=== PATIENT | female | born 1945 | race Caucasian/White ===

== ENCOUNTER 2021-02-20 08:26 | Outpatient (CLI) | payer MEDICARE, SELFPAY ==
--- NOTE | ~2021-02-20 | NM_ITS ---
EXAMINATION: NM alberto stress w perfusion DATE: 02/20/2021 13:21 CDT INDICATION: Chest pain and shortness of breath TECHNIQUE: Rest images were obtained following intravenous administration of mCi Tc99m tetrofosmin (Myoview). The patient was infused intravenously with Lexiscan (regadenoson). Then, 26.7 mCi Tc99m tetrofosmin (Myoview) was administered intravenously, and stress images were obt ained. Data was reconstructed into short axis and horizontal and vertical long axis SPECT images. Gat ed SPECT images were also obtained. COMPARISON: None. FINDINGS: There is no definite reversible or fixed perfusion abnormality to suggest ischemia or infar ction. There is no segmental wall motion abnormality. Left ventricular ejection fraction measures 8 0%. IMPRESSION: 1. No definite ischemia or infarct. 2. Normal left ventricular ejection fraction measuring 80%. Reviewed, dictated and finalized at location B.
--- NOTE | 2021-02-20 08:57 | ECHO_ITS ---
Patient Info Name: Faiza Bower Age: 75 years : 1945 Gender: Female Ht: 65 in Wt: 266 lbs BSA: 2.42 m2 HR: 96 bpm BP: 161 / 75 mmHg Technical Quality: Good Exam Date: 02/20/2021 9:17 AM Exam Location: [facility] Pulmonary Patient Status: Outpatient Admit Date: 02/20/2021 Staff Ordering Physician: John Acevedo DO Title One Reading Teacher: Ansley Beltran RDCS Attending Provider: John Acevedo DO Referring Physician: Curtis HAYNES; Exam Type: CA echo doppler color flow Study Info Indications - sob chest pain Complete two-dimensional, color flow and Doppler transthoracic echocardiogram is performed with contrast to opacify the left ventricle and to improve the deliniation of the left ventricle endocardial borders. Contrast/Agitated Saline Contrast/Ag. Saline: Definity Amount: --- ml Administered By: Sheela Jung RN New IV Access: Outer Forearm Site Condition: Site dressing applied Summary 1. Left ventricular chamber dimension is normal. 2. Definity contrast administered improved wall motion interpretation. 3. Left ventricular systolic function is normal, estimated at 65-70%. 4. There is mildly increased left ventricular wall thickness. 5. The left ventricular diastolic function is grade I diastolic dysfunction. 6. E/e' 14 is mildly elevated. 7. Left atrial chamber dimension is mildly enlarged. 8. The mitral valve has moderately calcified annulus. 9. No pulmonary hypertension, estimated pulmonary arterial systolic pressure is 38 mmHg. Left Ventricle E/e' 14 is mildly elevated. Definity contrast administered improved wall motion interpretation. Left ventricular chamber dimension is normal. Left ventricular systolic function is normal, estimated at 65-70%. There is mildly increased left ventricular wall thickness. The left ventricular diastolic function is grade I diastolic dysfunction. Right Ventricle Right ventricular chamber dimension is normal. Right ventricular systolic function is normal. Left Atria Left atrial chamber dimension is mildly enlarged. Right Atria Right atrial chamber dimension is normal. Aortic Valve The aortic valve is trileaflet. There is no aortic valve stenosis. There is no aortic valve regurgitation. Pulmonic Valve There is no pulmonic regurgitation. Mitral Valve The mitral valve has moderately calcified annulus. There is no mitral valve stenosis. There is no mitral valve regurgitation. Tricuspid Valve There is no tricuspid valve regurgitation. No pulmonary hypertension, estimated pulmonary arterial systolic pressure is 38 mmHg. Pericardium/Pleural There is no pericardial effusion. Inferior Vena Cava Normal inferior vena cava with >50% collapse upon inspiration consistent with normal right atrial pressure, 5 mmHg. Aorta The aortic root size at the sinus of Valsalva is normal. Left Ventricular Outflow Tract Name Value Normal LVOT 2D LVOT Diameter 2.0 cm LVOT Doppler LVOT Peak Gradient 5 mmHg LVOT Mean Gradient 2 mmHg LVOT VTI
--- NOTE | 2021-02-20 09:26 | EST_ITS ---
Patient Info Name: Faiza Bower Age: 75 years : 1945 Gender: Female Ht: 65 in Wt: 266 lbs BSA: 2.42 m2 Exam Date: 02/20/2021 11:34 AM Exam Location: [facility] Stress Patient Status: Outpatient Admit Date: 02/20/2021 Staff Ordering Physician: John Acevedo DO Attending Provider: John Acevedo DO Exercise Technologist: Janay Martinez CT Exercise Physician: John Acevedo DO Exam Type: CA stress alberto w NM Study Info A regadenoson stress test was performed. Summary 1. 1. Negative lexiscan stress test for ischemic ST changes by ECG criteria. 2. 2. Stable hemodynamics throughout the test. 3. 3. Nuclear scan to follow and will be reported separately. Please correlate with it. 4. 4. Patient informed of the above results. Protocol: Lexiscan Stress ECG Details Stage: REST Duration (min): 8 min : 33 sec HR (bpm): 79 SBP (mmHg): 136 DBP (mmHg): 70 Stage: REST Duration (min): 12 min : 45 sec HR (bpm): 78 SBP (mmHg): 136 DBP (mmHg): 70 Stage: STAGE 1 Duration (min): 0 min : 59 sec HR (bpm): 87 SBP (mmHg): 140 DBP (mmHg): 86 Stage: RECOVERY Duration (min): 1 min : 0 sec HR (bpm): 93 SBP (mmHg): 140 DBP (mmHg): 86 Stage: RECOVERY Duration (min): 2 min : 0 sec HR (bpm): 90 SBP (mmHg): 140 DBP (mmHg): 86 Stage: RECOVERY Duration (min): 2 min : 15 sec HR (bpm): 89 SBP (mmHg): 140 DBP (mmHg): 80 Rest HR: 78 bpm Peak HR: 93 bpm Rest Sys BP: 136 mmHg Peak Sys BP: 140 mmHg Max Pred HR: 144 bpm % Max Pred HR: 65 % Target HR: 122 bpm Max RPP: 13,020 bpm*mmHg Termination Reason: Completed protocol Cardiac Symptoms: Shortness of breath Total Time: 1 min : 0 sec Rest Batista BP: 70 mmHg Peak Batista BP: 86 mmHg Total Dose: 0.4 mg Resting ECG Sinus rhythm. Stress ECG No ST changes. Arrhythmias None. Report Signatures
== END 2021-02-20 08:27 | disposition home or self-care (01) ==
PROVIDERS: PCP Family Medicine; Visit Provider Internal Medicine Cardiovascular Disease
DX: R07.9 Chest pain, unspecified (principal); R06.02 Shortness of breath
CPT/HCPCS: 78452; 93017; 93306; A9502; J2785

== ENCOUNTER 2024-10-17 13:36 | Outpatient (RCR) | payer MEDICARE, SELFPAY ==
--- NOTE | 2024-10-17 14:33 | OPREHPOC ---
Outpatient Therapy Plan of Care This is a Multidisciplinary Plan of Care that may contain components documented by all disciplines (PT, OT, and ST.) PT Problem 1 PT Problem #1 Knowledge Deficit PT Goal 1 Goal / Goal Update *indep with HEP Target Visit 8 PT Problem 2 PT Problem #2 Pain PT Goal 1 Goal / Goal Update * pt self assessment with Oswestry rating of 30% limitation in activity level Target Visit 8 PT Problem 3 PT Problem #3 Impaired Strength PT Goal 1 Goal / Goal Update * pt perform 20 reps of R and L mat exercises, to increase strength and stability to spine Target Visit 8 PT Goal 2 Target Visit 8 PT Problem 4 PT Problem #4 Impaired Functional Mobility PT Goal 1 Goal / Goal Update * 2 minute walking test distance of 475' to improve community mobility Target Visit 8
--- NOTE | 2024-10-17 14:33 | PTOPEVAL1 ---
Assessment and note entered by Mery Kirk, PT Evaluation Information Assessment Status Evaluation ICD-10 Condition Codes (PT) Pain in low back M54.50 Onset June 2024 Subjective Information have had back pain since about COVID times; pain in back more recently- sitting too much and not as active; no recent imaging; activity: live in apartment; do not use walker or cane- do NOT want to use them; do not do any kind of exercises; pt does light cooking, indep with showering, have a seat; have caregiver 2x/wk for assisting with cleaning, laundry, transportation; Reported Pain Level Pain Score Self Report Additional Pain Score Comments pain range in the past week 2-8/10; weak back, sore muscles; hurts; lumbar and into R and L lateral hips with buttocks numb increase pain: standing/walking 5-10 minutes decrease pain: sit, rest, over the counter med for sleeping does not use heat- instruct on PRN use with sleeping --able to sleep 7 hours then wake up with sore back and hips from lying on her side Assessment PT Clinical Summary Faiza has the diagnosis of low back pain. Order is dated July. She has a history of chronic back pain with recent increase pain with standing, walking. She lives in an apartment and has a caregiver assist 2x/wk for transportation and home tasks. Self assessment Oswestry rating of 36% limitation in activity level. Standing/ walking tolerance of 5-10 minutes. With the evaluation: she has rounded trunk and shoulder posture, weakness of trunk and hips; supine hip IR on R and L increases her pain; 2 minute walking test distance of 425' with pain increase to 4/10; she is adamant and does not want to use an assistive device. Skilled PT services are indicated to increase trunk and LE strength, modalities PRN for pain control and education for HEP and posture correction. Plan of Care Interventions Electrical Stimulation,Hot Pack/Cold Pack,Manual Therapy,Neuro Re-education,Patient/Caregiver Education,Therapeutic Activities,Therapeutic Exercise,Ultrasound PT Services Indicated Yes Treatment Frequency and 1-2x/wk for 8 visits Duration These treatments will address the objective and functional deficits as defined above. The patient will be advanced safely and appropriately in order for the patient to progress towards his/her prior level of function. Additional exercises will be introduced and as well as a comprehensive home exercise program upon discharge, if needed, ?to ensure carryover of functional gains achieved in the clinic. This treatment plan has been reviewed and agreement upon by the patient.
--- NOTE | 2024-11-22 10:38 | PTOPDC ---
Assessment and note entered by Mery Kirk, PT Assessment Status Discharge - Pt Not Present ICD-10 Condition Codes (PT) Pain in low back M54.50 Onset June 2024 Subjective Information pt was not seen this date. Assessment PT Clinical Summary Faiza received the PT evaluation on Oct 17 and did not return for any further treatment. Discharge PT due to not attending. The goals were not addressed. Plan of Care PT Services Indicated No
== END 2024-11-22 12:25 | disposition home or self-care (01) ==
LOC: ANHPT 13:36
PROVIDERS: PCP Internal Medicine; Visit Provider Internal Medicine
DX: M54.50 Low back pain, unspecified (principal)
CPT/HCPCS: 97110; 97161; 97530

== ENCOUNTER 2025-07-10 14:49 | Outpatient (CLI) | payer MEDICARE, SELFPAY ==
[2025-07-10 18:31] LABS: Hematocrit 41.1 % (37.0-47.0); Hemoglobin 13.2 g/dL (12.0-15.0); Immature Granulocyte Percent A 0.6 % (0-0.5); Lymphocytes Absolute Auto 1.93 K/mm3 (0.9-3.2); Mean Corpuscular HGB Conc 32.1 g/dl (32-36); Mean Corpuscular Hemoglobin 29.0 pg (26-34); Mean Corpuscular Volume 90.3 fl (80-100); Nucleated Red Blood Cells Absolute Auto 0.000 K/mm3 (0.0-0.012); Nucleated Red Blood Cells Perc 0.0 % (0.0-0.2); Platelet Count Result 344 k/mm3 (150-375); Red Blood Count 4.55 M/mm3 (4.2-5.4); White Blood Count 8.3 K/mm3 (4.5-10.0)
[2025-07-10 18:44] LABS: Alanine Aminotransferase 21 U/L (6-35); Albumin Level 4.5 g/dL (3.5-5.1); Alkaline Phosphatase 80 U/L (38-126); Anion Gap 9 mmol/L (4-12); Aspartate Amino Transferase 38 U/L (14-36); Bilirubin,Total 0.5 mg/dL (0.2-1.3); Blood Urea Nitrogen 21 mg/dL (7-17); Calcium 10.4 mg/dL (8.4-10.2); Carbon Dioxide 27 mmol/L (22-30); Chloride 106 mmol/L (98-107); Cholesterol 220 mg/dL (0-200); Estimated Glomerular Filt Rate 57; Glucose 118 mg/dL (65-110); HDL Direct 53 mg/dL; Potassium 4.7 mmol/L (3.4-5.0); Sodium 142 mmol/L (137-145); Total Protein 8.0 g/dL (6.3-8.2); Triglycerides 167 mg/dL (<150)
[2025-07-10 19:07] LABS: Hemoglobin A1C 5.1 % (<5.7)
[2025-07-10 19:20] LABS: Thyroid Stimulating Hormone 1.140 uIU/mL (0.465-4.680)
== END 2025-07-10 14:50 | disposition home or self-care (01) ==
LOC: ANHGOSHLAB 14:50
PROVIDERS: PCP Internal Medicine; Visit Provider Internal Medicine
DX: E11.9 Type 2 diabetes mellitus without complications (principal); I10 Essential (primary) hypertension; G89.29 Other chronic pain; R55 Syncope and collapse; R79.89 Other specified abnormal findings of blood chemistry
CPT/HCPCS: 36415; 80053; 80061; 83036; 84443; 85025